=== PATIENT | male | born 1975 | race Caucasian/White ===

== ENCOUNTER 2021-11-25 06:48 | Emergency (ER) | payer OTHER ==
[~2021-11-25] VITALS: Ht 188 cm; Wt 95.3 kg
[2021-11-25] MEDS ORDERED: VALACYCLOVIR1000 MG PO (08:37)
[2021-11-25 08:52] VITALS: BP 146/86
== END 2021-11-25 08:52 | disposition home or self-care (01) ==
LOC: ER 06:48
PROVIDERS: Emergency Medicine
DX: U07.1 COVID-19 (principal); B08.5 Enteroviral vesicular pharyngitis; B30.9 Viral conjunctivitis, unspecified